=== PATIENT | male | born 1985 | race Hispanic/Latino ===

== ENCOUNTER 2018-02-15 23:27 | Emergency (ER) | payer OTHER, SELFPAY ==
[2018-02-16] MEDS ORDERED: NA CHLORIDE 0.9% 1,000 ML ONE (00:19)
[2018-02-16 00:26] LABS: Absolute Lymphocytes (CBC) 3.1 K/uL (0.7-4.9); Absolute Monocytes 0.6 K/uL (0.1-1.3); Absolute Neutrophil 4.9 K/uL (1.8-8.0); Basophils % 0.5 % (0-1.3); Eosinophils % 3.8 % (0-4.4); Hematocrit 43.5 % (39.6-49.0); Lymphocytes % 34.6 % (15.3-44.8); MCH 31.7 pg (27.0-35.0); MCV 92.1 fL (80-100); MPV 7.6 fL (7.6-11.3); Monocytes % 6.9 % (3.3-12.3); RBC Red Blood Cell Count 4.72 M/uL (4.33-5.43)
[2018-02-16 00:36] LABS: Potassium 3.8 mEq/L (3.6-5.0)
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
== END 2018-02-16 00:53 | disposition left against medical advice (07) ==
LOC: ER 23:27
DX: R10.9 Unspecified abdominal pain; R51 Headache; F17.210 Nicotine dependence, cigarettes, uncomplicated; M54.2 Cervicalgia
CPT/HCPCS: 36415; 80048; 85025; 99283; J7030

== ENCOUNTER 2018-05-24 09:45 | Emergency (ER) | payer OTHER, SELFPAY ==
[2018-05-24] MEDS ORDERED: DEXAMETHASONE 10 MG/ML VIAL ONE (11:03)
[2018-05-24] MEDS ORDERED: MORPHINE 4 MG/ML SYR ONE (11:04)
[2018-05-24] MEDS ORDERED: ONDANSETRON 4 MG/2 ML VIAL ONE (11:04)
[2018-05-24] MEDS ORDERED: CYCLOBENZAPRINE 10 MG TAB ONE (12:11)
--- NOTE | 2018-05-24 12:47 | EDPHYS ---
Physician Documentation [facility] Name: Ed House Age: 33 yrs Sex: Male : 1985 Arrival Date: 05/24/2018 Time: 09:48 Bed 18 Private MD: ED Physician Alec Cobos HPI: 05/24 10:05 This 33 yrs old Male presents to ER via Ambulatory with complaints of Leg Pain.[facility] 10:05 The patient presents with an injury, pain. The complaints affect the right gluteal jmm fold, right hamstring, posterior aspect of right knee, right guevara and dorsum of right foot. Onset: The symptoms/episode began/occurred acutely, 3 week(s) ago. Modifying factors: The symptoms are alleviated by remaining still, the symptoms are aggravated by movement. Associated signs and symptoms: Pertinent positives: numbness, tingling, Pertinent negatives. This is a 33 year old male with a history of chronic back pain due to scoliosis presents to the ED with right leg pain beginning approx 3 weeks ago after feeling a pop in his right buttocks while squatting. Patient states that since then he has had muscle spasms along the back of his buttocks and right thigh with pain radiating to his right great toe. The patient denies urinary retention, denies fecal incontinence, denies fever. The patient states he has numbness and tingling to his leg with relief using warm water on the affected area. Patient states he is able to walk but has difficulty during episodes of pain. . Historical: - Allergies: 10:05 No Known Allergies; ch - Home Meds: 10:05 Aleve Oral [Active]; ch - PMHx: 10:05 Back pain; ch - PSHx: 10:05 dental; ch - Immunization history:: Adult Immunizations up to date, Last tetanus immunization: not indicated for visit today. Flu vaccine status is unknown. - Social history:: Smoking status: Patient uses tobacco products, smokes one pack cigarettes per day. Patient/guardian denies using alcohol, street drugs. - Ebola Screening: : Patient negative for fever greater than or equal to 101.5 degrees Fahrenheit, and additional compatible Ebola Virus Disease symptoms Patient denies exposure to infectious person Patient denies travel to an Ebola-affected area in the 21 days before illness onset No symptoms or risks identified at this time. ROS: 10:05 Constitutional: Negative for fever. jmm 10:05 Respiratory: Negative for shortness of breath. 10:05 Back: Negative for pain at rest, pain with movement. 10:05 MS/extremity: Positive for pain. 10:05 Neuro: Positive for numbness, tingling. 10:05 All other systems are negative. Exam: 10:05 Head/Face: atraumatic. Cardiovascular: Regular rate and rhythm. No gallops, murmurs, jmm or rubs. Full/Equal distal pulses. Respiratory: Lungs have equal breath sounds bilaterally, clear to auscultation. 10:05 Constitutional: The patient appears in no acute distress, alert, awake. 10:05 Abdomen/GI: Rectal exam: rectal tone normal. 10:05 Musculoskeletal/extremity: FROM appreciated to the right knee and right hip, pain is elicited on flexion of the hip, full dorsalis pedis pulse is appreciated, compartments are soft, full extension of the right great toe is appreciated. Motor function is intact. 10:05 Neuro: Orientation: is normal, Mentation: is normal, Memory: is normal. 10:05 Psych: Behavior/mood is pleasant, cooperative. Vital Signs: 10:05 BP 107 / 79; Pulse 94; Resp 15; Pulse Ox 99% on R/A; Weight 78.02 kg; Height 6 ft. 0 ch in. (182.88 cm); Pain 9/10; 11:21 BP 110 / 64; Pulse 88; Resp 19; Pulse Ox 99% on R/A; Pain 9/10; ch 10:05 Body Mass Index 23.33 (78.02 kg, 182.88 cm) MDM: 10:09 Patient medically screened. [facility] 12:46 Data reviewed: vital signs, nurses notes, radiologic studies, ultrasound. Counseling: I raymond had a detailed discussion with the patient and/or guardian regarding: the historical points, exam findings, and any diagnostic results supporting the discharge/admit diagnosis, radiology results, the need for outpatient follow up, to return to the emergency department if symptoms worsen or persist or if there are any questions or concerns that arise at home. Response to treatment: the patient's symptoms have mildly improved after treatment. 13:20 ED course: Patient's symptoms and physical exam finding does not seem consistent with jmm cauda equina. Patient is advised to follow up with orthopedics for further evaluation. The family is otherwise given strict return precautions. The patient understood and agrees with the plan of care. . 05/24 12:04 Order name: Extremity Venous Uni Ltd US; Complete Time: 13:23 trent 05/24 10:53 Order name: Saline Lock; Complete Time: 11:21 [facility] Administered Medications: 11:10 Drug: Zofran 4 mg Route: IVP; Site: right forearm; 12:19 Follow up: Response: No adverse reaction; No change in condition 11:12 Drug: Decadron - Dexamethasone 10 mg Route: IVP; Site: right forearm; ch 12:19 Follow up: Response: No adverse reaction; No change in condition ch 11:14 Drug: morphine 4 mg Route: IVP; Site: right forearm; ch 12:19 Follow up: Response: No adverse reaction; No change in condition 12:19 Drug: Flexeril 10 mg Route: PO; Disposition: 14:59 Co-signature as Attending Physician, Alec Cobos MD I agree with the assessment and [facility] plan of care. Disposition: 05/24/18 12:46 Discharged to Home. Impression: Sciatica, right side. - Condition is Stable. - Discharge Instructions: Sciatica, Back Exercises, [id number]. - Prescriptions for Ultracet 37.5- 325 mg Oral Tablet - take 1 tablet by ORAL route every 6 hours - for up to 5 days; do not exceed 8 tablets per day.; 20 tablet. orphenadrine citrate 100 mg Oral Tablet Sustained Release - take 1 tablet by ORAL route 2 times per day As needed; 20 tablet. - Work release form, Medication Reconciliation Form, Thank You Letter, Antibiotic Education, Prescription Opioid Use form. - Follow up: Private Physician; When: 2 - 3 days; Reason: Continuance of care. Signatures: Dispatcher [employer] Olivia Molina RN Alec Garcia ch, MD MD cha Mickail, Joel, PA PA jmm Leal, Jahala, RN RN jl7 Corrections: (The following items were deleted from the chart) 13:31 12:46 05/24/2018 12:46 Discharged to Home. Impression: Sciatica, right side. Condition jl7 is Stable. Forms are Medication Reconciliation Form, Thank You Letter, Antibiotic Education, Prescription Opioid Use. Follow up: Private Physician; When: 2 - 3 days; Reason: Continuance of care. jmm
--- NOTE | 2018-05-24 12:47 | ER ---
Nurse's Notes [facility] Name: Ed House Age: 33 yrs Sex: Male : 1985 Arrival Date: 05/24/2018 Time: 09:48 Bed 18 Private MD: Diagnosis: Sciatica, right side Presentation: 05/24 10:01 Presenting complaint: Patient states: pain in R buttock for the past 3 weeks, radiating ch down leg. Transition of care: patient was not received from another setting of care. Onset of symptoms was April 2018. Risk Assessment: Do you want to hurt yourself or someone else? Patient reports no desire to harm self or others. Initial Sepsis Screen: Does the patient meet any 2 criteria? No. Patient's initial sepsis screen is negative. Does the patient have a suspected source of infection? No. Patient's initial sepsis screen is negative. Care prior to arrival: None. 10:01 Method Of Arrival: Ambulatory 10:01 Acuity: MINDY 4 ch Triage Assessment: 10:05 General: Appears in no apparent distress. uncomfortable, Behavior is anxious, restless. Pain: Complains of pain in right gluteus rosario, right gluteal fold, right hamstring, posterior aspect of right knee, right calf, right Achilles and dorsum of right foot Pain currently is 9 out of 10 on a pain scale. Neuro: No deficits noted. Respiratory: Airway is patent Respiratory effort is even, unlabored, Breath sounds are clear bilaterally. : No signs and/or symptoms were reported regarding the genitourinary system. Derm: Skin is pink, warm \T\ dry. Musculoskeletal: Circulation, motion, and sensation intact. Capillary refill < 3 seconds, in bilateral fingers. toes. Range of motion: intact in all extremities, pt waking with a limp. Historical: - Allergies: 10:05 No Known Allergies; ch - Home Meds: 10:05 Aleve Oral [Active]; ch - PMHx: 10:05 Back pain; ch - PSHx: 10:05 dental; ch - Immunization history:: Adult Immunizations up to date, Last tetanus immunization: not indicated for visit today. Flu vaccine status is unknown. - Social history:: Smoking status: Patient uses tobacco products, smokes one pack cigarettes per day. Patient/guardian denies using alcohol, street drugs. - Ebola Screening: : Patient negative for fever greater than or equal to 101.5 degrees Fahrenheit, and additional compatible Ebola Virus Disease symptoms Patient denies exposure to infectious person Patient denies travel to an Ebola-affected area in the 21 days before illness onset No symptoms or risks identified at this time. Screenin:07 Abuse screen: Denies threats or abuse. Denies injuries from another. Nutritional screening: No deficits noted. Tuberculosis screening: No symptoms or risk factors identified. Fall Risk None identified. Assessment: 10:07 Reassessment: Patient appears in no apparent distress at this time. 10:48 Reassessment: Patient appears in no apparent distress at this time. No changes from previously documented assessment. Patient and/or family updated on plan of care and expected duration. Pain level reassessed. Patient is alert, oriented x 3, equal unlabored respirations, skin warm/dry/pink. 11:21 Reassessment: Patient appears in no apparent distress at this time. No changes from previously documented assessment. Patient and/or family updated on plan of care and expected duration. Pain level reassessed. Patient is alert, oriented x 3, equal unlabored respirations, skin warm/dry/pink. 12:20 Reassessment: Patient appears in no apparent distress at this time. No changes from previously documented assessment. Vital Signs: 10:05 BP 107 / 79; Pulse 94; Resp 15; Pulse Ox 99% on R/A; Weight 78.02 kg; Height 6 ft. 0 ch in. (182.88 cm); Pain 9/10; 11:21 BP 110 / 64; Pulse 88; Resp 19; Pulse Ox 99% on R/A; Pain 9/10; ch 10:05 Body Mass Index 23.33 (78.02 kg, 182.88 cm) ED Course: 09:48 Patient arrived in ED. mr 09:57 Umesh Easley PA is PHCP. jmm 09:57 Alec Cobos MD is Attending Physician. [facility] 10:01 Olivia Mandujano, NAKIA is Primary Nurse. 10:03 Triage completed. 10:05 Arm band placed on left wrist. Patient placed in an exam room, on a stretcher. ch 10:07 No apparent distress. Resting quietly. ch 10:07 Patient has correct armband on for positive identification. Placed in gown. Bed in low ch position. Call light in reach. Side rails up X 1. 10:07 No provider procedures requiring assistance completed. ch 11:05 No apparent distress. Resting quietly. ch 11:05 Inserted saline lock: 18 gauge in right forearm, using aseptic technique. Blood ch collected. Patient did not have IV access during this emergency room visit. 11:05 Patient maintains SpO2 saturation greater than 95% on room air. ch 12:45 Extremity Venous Uni Ltd US In Process Unspecified. EDMS 12:48 Ultrasound completed. Patient tolerated well. lc3 Administered Medications: 11:10 Drug: Zofran 4 mg Route: IVP; Site: right forearm; ch 12:19 Follow up: Response: No adverse reaction; No change in condition ch 11:12 Drug: Decadron - Dexamethasone 10 mg Route: IVP; Site: right forearm; ch 12:19 Follow up: Response: No adverse reaction; No change in condition ch 11:14 Drug: morphine 4 mg Route: IVP; Site: right forearm; ch 12:19 Follow up: Response: No adverse reaction; No change in condition ch 12:19 Drug: Flexeril 10 mg Route: PO; ch Outcome: 12:46 Discharge ordered by . raymond 13:31 Patient left the ED. jl7 Signatures: Dispatcher [employer] EDMS Olivia Mandujano, RN RN Umesh Easley PA PA jmm Rivera, Maria mr GallegosKathy lc3 Marianna Mauro RN RN jl7 Corrections: (The following items were deleted from the chart) 11:23 10:07 Patient did not have IV access during this emergency room visit. ch
--- NOTE | 2018-05-24 13:01 | RAD REPORT ---
EXAM DESCRIPTION: VAS - Extremity Venous Uni Ltd - 05/24/2018 12:50 pm CLINICAL HISTORY: PAIN Leg swelling and edema. COMPARISON: No comparisons FINDINGS: Right lower extremity venous system was interrogated with Doppler technique. Normal flow, compressibility and augmentation was noted. There is no DVT present. IMPRESSION: No evidence of right lower extremity deep venous thrombosis.
== END 2018-05-24 13:31 | disposition home or self-care (01) ==
LOC: ER 09:45
DX: M54.31 Sciatica, right side (principal); F17.210 Nicotine dependence, cigarettes, uncomplicated
CPT/HCPCS: 93971; 96374; 96375; 99284; J1100; J2405